=== PATIENT | male | born 1965 | race Caucasian/White ===

== ENCOUNTER 2020-09-26 11:02 | Outpatient (CLI) | payer OTHER, SELFPAY ==
--- NOTE | ~2020-09-26 | XR_ITS ---
EXAMINATION: XR knee RT 3V DATE: 09/26/2020 11:15 INDICATION: Right knee pain. TECHNIQUE: 3 views of right knee were obtained. COMPARISON: None. FINDINGS: Bone alignment is normal. No fracture. There is mild tricompartmental osteoarthritis. There is a small knee joint effusion. IMPRESSION: 1. Mild right knee osteoarthritis. 2. Small right knee joint effusion. Reviewed, dictated and finalized at location B.
--- NOTE | ~2020-09-26 | XR_ITS ---
EXAMINATION: XR knee LT 3V DATE: 09/26/2020 11:15 INDICATION: Left knee pain. TECHNIQUE: 3 views of left knee were obtained. COMPARISON: None. FINDINGS: Bone alignment is normal. No fracture. There is mild tricompartmental osteoarthritis. No kn ee joint effusion. IMPRESSION: 1. Mild left knee osteoarthritis. Reviewed, dictated and finalized at location B.
== END 2020-09-26 11:03 | disposition home or self-care (01) ==
PROVIDERS: PCP Family Medicine; Visit Provider Family Medicine
DX: M25.462 Effusion, left knee (principal); M25.461 Effusion, right knee; M17.0 Bilateral primary osteoarthritis of knee
CPT/HCPCS: 73562

== ENCOUNTER 2022-04-03 08:32 | Emergency (ER) | payer OTHER, SELFPAY ==
[2022-04-03 08:40] VITALS: BP 157/97; PULSE 78; RESP 16; TEMP 36.7; O2SAT 96
--- NOTE | 2022-04-03 09:01 | ED.URI ---
HPI - URI/Sore Throat General Chief Complaint: Upper Respiratory Infection Stated Complaint: Cough/Chest Congestion Time Seen by Provider: 04/03/22 09:01 Source: patient and RN notes reviewed Mode of arrival: ambulatory Limitations: no limitations History of Present Illness HPI Narrative: 56 y/o male presented for c/o 6 days of dry cough, occasional wheezing, and Diarrhea mostly associated with coughing. Taking mucinex, coricidin, robitussin. Hx HTN. denies chest pain, palpitations, dizziness, shortness of breath, nausea, vomiting, fevers or chills. hx htn MD elicited complaint: cough Related Data Home Medications Medication Instructions Recorded Confirmed amlodipine 10 mg tablet mg 04/03/22 atorvastatin 20 mg tablet mg 04/03/22 losartan 100 tablet 04/03/22 mg-hydrochlorothiazide 25 mg tablet metoprolol succinate 25 mg mg PO 04/03/22 tablet,extended release 24 hr Allergies Allergy/AdvReac Type Severity Reaction Status Date / Time No Known Allergies Allergy Mild Verified 04/03/22 08:51 Review of Systems Review of Systems: ROS per HPI [facility] Surgical History Surgical History History of ankle surgery Hx of tonsillectomy Social History Social History Smoking packs per day: 1 Smoking cigarettes per day: 20.0 Smoking status: Current every day smoker Tobacco type: cigarettes Alcohol intake: current Drinks per week: 21 Substance use: never Exam Narrative: GENERAL: Ill-appearing, nontoxic EYES: PERRLA, conjunctivae clear ENT: Mucous membranes moist. TM pearly eugene with dull light reflex bilaterally; no tragal tenderness. Oropharynx erythematous without lesions or exudate, no drooling, no hoarseness, no trismus, uvula midline. CHEST: Lungs Diminished and Clear to auscultation, breath sounds equal. No wheezing, rhonchi, rales, or stridor. No respiratory distress, speaks in full sentences. HEART: Regular rate and rhythm. No murmur heard. ABD: soft flat nontender, bs+x4 SKIN: Warm, dry, no rash. NEURO: Alert and oriented x3. PSYCH: Normal mood and affect Course Course Emergency Course: Patient is aware of diagnosis, understands and agrees to treatment plan. Anticipatory guidance given. Patient agrees to follow-up as directed and is aware of reasons to seek care at the emergency department. Portions of this record may have been created with voice recognition software Level of Care: Express Care Visit Vital Signs Vital signs: Vital Signs Temperature 98.1 F 04/03/22 08:40 Pulse Rate 78 04/03/22 08:40 Respiratory Rate 16 04/03/22 08:40 Blood Pressure 157/97 H 04/03/22 08:40 Pulse Oximetry 96 04/03/22 08:40 Oxygen Delivery Room Air 04/03/22 08:40 Temperature 98.1 F 04/03/22 08:40 Pulse Rate 78 04/03/22 08:40 Respiratory Rate 16 04/03/22 08:40 Blood Pressure 157/97 H 04/03/22 08:40 Pulse Oximetry 96 04/03/22 08:40 Oxygen Delivery Room Air 04/03/22 08:40 reviewed MDM - URI/Sore Throat MDM Narrative Medical decision making narrative: Advised supportive measures for bronchitis, reviewed Rx, and signs/symptoms to go to the ER. Pt is appropriate for outpt treatment and f/u. Differential Diagnosis Differential diagnosis: Likely upper respiratory infection, sinusitis, viral infection and bronchitis Discharge Plan Discharge Clinical Impression: Bronchitis Patient Disposition: Home, Self-Care Condition: Stable Instructions: Acute Bronchitis (ED) Additional Instructions: Take medication as directed Avoid crowds until you do not have a fever and symptoms are improved Take medication as directed Recommend Flonase spray and Zyrtec (or Claritin/Celeste) over the counter Cough syrup may cause drowsiness; avoid driving or take it at night time. Avoid decongestants with your history of high blood pressure. Tylenol 1000
== END 2022-04-03 09:20 | disposition home or self-care (01) ==
PROVIDERS: Emergency Provider Nurse Practitioner Family
DX: J40 Bronchitis, not specified as acute or chronic (principal); F17.210 Nicotine dependence, cigarettes, uncomplicated; I10 Essential (primary) hypertension
CPT/HCPCS: 99213; G0463

== ENCOUNTER 2025-01-11 13:46 | Outpatient (CLI) | payer SELFPAY ==
--- NOTE | ~2025-01-11 | CT_ITS ---
EXAMINATION: CT chest abdomen pelvis w con DATE: 01/11/2025 14:37 INDICATION: Malignant neoplasm of descended right testicle. TECHNIQUE: Computed tomography (CT) of the chest, abdomen, and pelvis was performed with 100 mL Omnipaque 350 intravenous contrast. Automated exposure control and iterative reconstruction technique were employed. The dose-length product was 1436.95 mGy-cm. COMPARISON: None FINDINGS: CHEST CT: There is mild emphysema. There is a 5 mm nodule in right upper lobe. The lungs demonstrate mild atelectasis. A calcified right lung nodule is consistent with old granulomatous disease. No pleural effusion. The heart size is normal. There are coronary artery calcifications. No pericardial effusion. There are no pathologically enlarged lymph nodes. There is mild thoracic spondylosis. ABDOMEN/PELVIS CT: There is diffuse hepatic steatosis. The gallbladder, spleen, pancreas, and adrenal glands are normal. There are cysts in the kidneys measuring up to 17 mm on the right. The prostate is mildly enlarged. There are no dilated loops of bowel. The appendix is normal. There are no pathologically enlarged lymph nodes. There is no free intraperitoneal fluid. There are changes of right orchiectomy. There is moderate lumbar spondylosis. IMPRESSION: 1. 5 mm pulmonary nodule, likely granulomatous disease. Metastatic disease cannot be excluded. 2. Mild emphysema. Reviewed, dictated and finalized at location E. IMPRESSION: 1. 5 mm pulmonary nodule, likely granulomatous disease. Metastatic disease cele ot be excluded. 2. Mild emphysema.
[2025-01-11 14:08] LABS: Estimated Glomerular Filt Rate > 60
== END 2025-01-11 13:47 | disposition home or self-care (01) ==
LOC: MICIMG 13:47
PROVIDERS: PCP Internal Medicine; Visit Provider Internal Medicine
DX: C62.11 Malignant neoplasm of descended right testis (principal); J43.9 Emphysema, unspecified
CPT/HCPCS: 71260; 74177; Q9967